=== PATIENT | female | born 1940 | race Caucasian/White ===

== ENCOUNTER 2017-01-17 18:38 | Emergency (ER) | payer OTHER ==
[~2017-01-17] VITALS: Ht 157.5 cm; Wt 40.0 kg
[2017-01-17 18:41] VITALS: BP 153/69; PULSE 75; RESP 18; TEMP 98; O2SAT 95
--- NOTE | 2017-01-17 20:26 | PD ---
HPI Chief Complaint: Respiratory Symptoms Time Seen by Provider: 20:15 Travel History International Travel<30 days: No Contact w/Intl Traveler<30days: No Traveled to known affect area: No History of Present Illness HPI 76-year-old female with history of COPD here for evaluation of cough and shortness of breath. The patient reports that she had the flu shot on December 16, and since then she has had upper respiratory symptoms. She was given a Z- Rashad by her primary care physician in [place]. She was on a cruise ship and return today. 2 days ago while on the ship the cruise doctor started her on amoxicillin. Cough is productive of yellowish sputum. No hemoptysis. No history of DVT or PE. No chest pain. The patient has had episodes of vomiting and loose bowel movements. No abdominal pain. PFSH Social History Tobacco Use: No (Former smoker) Allergies-Medications (Allergen,Severity, Reaction): Coded Allergies: Sulfa (Sulfonamide Antibiotics) (Verified Allergy, Severe, TONGUE SWELLING , 01/17/17) aspirin (Verified Allergy, Intermediate, STOMACH BURNING, 01/17/17) Reported Meds & Prescriptions Reported Meds & Active Scripts Active Zofran Odt (Ondansetron Odt) 4 Mg Tab 4 Mg SL Q8HR PRN Levaquin (Levofloxacin) 500 Mg Tablet 500 Mg PO DAILY 5 Days Prednisone 50 Mg Tab 50 Mg PO DAILY 5 Days Reported Amoxicillin-Clavulanate 875-125 mg Tab 875 Mg PO BID not for use in CrCl <30 mL/minute Enalapril (Enalapril Maleate) 2.5 Mg Tab 2.5 Mg PO DAILY Proair Hfa 8.5 GM Inh (Albuterol Sulfate) 90 Mcg/Act Aer 2 Puff INH Q4-6H PRN 108 mcg/actuation Spiriva Respimat Inh (Tiotropium Inh) 2.5 Mcg/Act Aero 2 Puff INH DAILY 2.5 mcg = 1 inhalation Review of Systems Except as stated in HPI: all other systems reviewed are Neg Physical Exam Narrative GENERAL: Well-developed, thin, comfortable, no apparent distress. SKIN: Focused skin assessment warm/dry. No rash. HEAD: Atraumatic. Normocephalic. EYES: Pupils equal and round. No scleral icterus. No injection or drainage. ENT: Mucous membranes pink and moist. NECK: Trachea midline. No JVD. CARDIOVASCULAR: Regular rate and rhythm. RESPIRATORY: No accessory muscle use. Clear to auscultation. Breath sounds equal bilaterally. GASTROINTESTINAL: Abdomen soft, non-tender, nondistended. MUSCULOSKELETAL: No obvious deformities. No clubbing. No cyanosis. No edema. NEUROLOGICAL: Awake and alert. No obvious cranial nerve deficits. Motor grossly within normal limits. Normal speech. PSYCHIATRIC: Appropriate mood and affect; insight and judgment normal. Data Data Last Documented VS Vital Signs Date Time Temp Pulse Resp B/P (MAP) Pulse Ox O2 Delivery O2 Flow Rate FiO2 01/17/17 23:04 108 17 138/68 (91) 96 01/17/17 21:10 21 01/17/17 20:53 Room Air 01/17/17 18:41 98.0 Orders Orders Complete Blood Count With Diff (01/17/17 20:21) Comprehensive Metabolic Panel (01/17/17 20:21) B-Type Natriuretic Peptide (01/17/17 20:21) Act Partial Throm Time (Ptt) (01/17/17 20:21) Prothrombin Time / Inr (Pt) (01/17/17 20:21) Influenzae A/B Antigen (01/17/17 20:21) Iv Access Insert/Monitor (01/17/17 20:21) Electrocardiogram (01/17/17 20:21) Ecg Monitoring (01/17/17 20:21) Oximetry (01/17/17 20:21) Oxygen Administration (01/17/17 20:21) Chest, Single Ap (01/17/17 20:21) Sodium Chloride 0.9% Flush (Ns Flush) (01/17/17 20:30) Methylprednisolone So Succ Inj (Solumedr (01/17/17 20:30) Albuterol-Ipratropium Neb (Duoneb Neb) (01/17/17 20:30) Ondansetron Inj (Zofran Inj) (01/17/17 22:00) Levofloxacin 500 Mg Premix Inj (Levaquin (01/17/17 22:00) Ed Discharge Order (01/17/17 21:56) Labs Laboratory Tests Test 01/17/17 20:35 White Blood Count 7.7 TH/MM3 Red Blood Count 3.81 MIL/MM3 Hemoglobin 11.8 GM/DL Hematocrit 34.6 % Mean Corpuscular Volume 90.8 FL Mean Corpuscular Hemoglobin 31.0 PG Mean Corpuscular Hemoglobin Concent 34.1 % Red Cell Distribution Width 13.0 % Platelet Count 451 TH/MM3 Mean Platelet Volume 7.0 FL Neutrophils (%) (Auto) 57.8 % Lymphocytes (%) (Auto) 23.2 % Monocytes (%) (Auto) 12.7 % Eosinophils (%) (Auto) 6.0 % Basophils (%) (Auto) 0.3 % Neutrophils # (Auto) 4.5 TH/MM3 Lymphocytes # (Auto) 1.8 TH/MM3 Monocytes # (Auto) 1.0 TH/MM3 Eosinophils # (Auto) 0.5 TH/MM3 Basophils # (Auto) 0.0 TH/MM3 CBC Comment DIFF FINAL Differential Comment Prothrombin Time 10.5 SEC Prothromb Time International Ratio 1.0 RATIO Activated Partial Thromboplast Time 25.9 SEC Blood Urea Nitrogen 13 MG/DL Creatinine 0.66 MG/DL Random Glucose 98 MG/DL Total Protein 6.5 GM/DL Albumin 2.7 GM/DL Calcium Level 8.3 MG/DL Alkaline Phosphatase 80 U/L Aspartate Amino Transf (AST/SGOT) 18 U/L Alanine Aminotransferase (ALT/SGPT) 9 U/L Total Bilirubin 0.2 MG/DL Sodium Level 138 MEQ/L Potassium Level 4.1 MEQ/L Chloride Level 105 MEQ/L Carbon Dioxide Level 30.2 MEQ/L Anion Gap 3 MEQ/L Estimat Glomerular Filtration Rate 87 ML/MIN B-Type Natriuretic Peptide 16 PG/ML MDM Medical Decision Making Medical Screen Exam Complete: Yes Emergency Medical Condition: Yes Interpretation(s) EKG: Sinus, rate 69, normal axis, normal intervals, no acute ischemic abnormality. Differential Diagnosis Bronchitis, pneumonia, viral illness, dehydration/metabolic abnormality Narrative Course Vital signs are within normal limits. CBC is unremarkable. CMP is unremarkable. Chest x-ray shows no acute disease. Influenza is negative. The patient was given 3 DuoNeb treatments and IV Solu-Medrol and on reassessment she is resting comfortably. She was never in any respiratory distress. She likely has bronchitis given history of COPD with cough productive of yellowish sputum. She will be discharged home with a prescription for prednisone, Levaquin, and Zofran. She has albuterol inhaler. She was advised to follow-up with her primary care physician this week. She was informed on when to return to the emergency department. She verbalizes understanding and agreement with plan. Diagnosis Primary Impression: Bronchitis Referrals: Primary Care Physician 3 days Additional Instructions: Follow-up with your primary care physician this week. Take antibiotic as prescribed. Return to the emergency department for worsening symptoms or any other concerns. Scripts Ondansetron Odt (Zofran Odt) 4 Mg Tab 4 MG SL Q8HR Y for Nausea/Vomiting, #20 TAB 0 Refills Prov: Chalino Diamond MD 01/17/17 Levofloxacin (Levaquin) 500 Mg Tablet 500 MG PO DAILY for Infection for 5 Days, #5 TAB 0 Refills Prov: Chalino Diamond MD 01/17/17 Prednisone (Prednisone) 50 Mg Tab 50 MG PO DAILY for 5 Days, #5 TAB 0 Refills Prov: Chalino Diamond MD 01/17/17 Disposition: 01 DISCHARGE HOME Condition: Stable Chalino Diamond MD Jan 17, 2017 20:26
[2017-01-17] MEDS ORDERED: methylPREDNISolone SOD SUCC 125 MG/2 ML VIAL IV PUSH ONE (20:30)
[2017-01-17] MEDS ORDERED: SODIUM CHLORIDE 0.9% FLUSH 10 ML FLUSH IVF PRN (20:30)
[2017-01-17 20:52] VITALS: BP 122/57; PULSE 66; RESP 22; O2SAT 96
--- NOTE | 2017-01-17 20:52 | RADRPT ---
EXAM DATE/TIME: 01/17/2017 20:35 [facility] COMPARISON: No previous studies available for comparison. INDICATIONS : Short of breath. MEDICAL HISTORY : None. SURGICAL HISTORY : None. ENCOUNTER: Initial ACUITY: 1 day PAIN SCORE: 7/10 LOCATION: Bilateral chest FINDINGS: A single view of the chest demonstrates the lungs to be symmetrically aerated without evidence of mas s, infiltrate or effusion. The cardiomediastinal contours are unremarkable. Osseous structures are intact. CONCLUSION: No evidence of acute cardiopulmonary disease. Suman King MD on January 17, 2017 at 20:49 Board Certified Radiologist. This report was verified electronically.
[2017-01-17] MEDS ORDERED: AMOX875T2 PO (20:55)
[2017-01-17] MEDS ORDERED: ALBUAER3 INH (20:55)
[2017-01-17] MEDS ORDERED: TIOT12.9 INH (20:55)
[2017-01-17] MEDS ORDERED: ENAL2.5T PO (20:55)
[2017-01-17] MEDS: RESP: ALBUTEROL 2.5 MG/IPRATROPIUM 0.5 MG NEB (SCH) INH (21:07)
[2017-01-17 21:10] VITALS: O2SAT 96
[2017-01-17 21:33] LABS: AUTOMATED NEUTROPHIL # 4.5 TH/MM3 (1.8-7.7); BASOPHIL % 0.3 % (0.0-2.0); EOSINOPHIL # 0.5 TH/MM3 (0-0.4); HEMATOCRIT 34.6 % (35.0-46.0); HEMO FLAGS DIFF FINAL; LYMPH % 23.2 % (9.0-44.0); LYMPHOCYTE # 1.8 TH/MM3 (1.0-4.8); MEAN CELL VOLUME 90.8 FL (80.0-100.0); MEAN CORPUSCULAR HGB CONC 34.1 % (32.0-36.0); MONO % 12.7 % (0.0-8.0); NEUT % 57.8 % (16.0-70.0); PLATELET COUNT 451 TH/MM3 (150-450); RED BLOOD COUNT 3.81 MIL/MM3 (4.00-5.30); WHITE BLOOD COUNT 7.7 TH/MM3 (4.0-11.0)
[2017-01-17 21:36] LABS: APTT (PATIENT) 25.9 SEC (24.3-30.1); PROTHROMBIN TIME - PATIENT 10.5 SEC (9.8-11.6)
[2017-01-17 21:48] LABS: ALT (GPT) 9 U/L (10-53); ANION GAP 3 MEQ/L (5-15); AST (GOT) 18 U/L (15-37); BICARBONATE 30.2 MEQ/L (21.0-32.0); BLOOD UREA NITROGEN 13 MG/DL (7-18); CHLORIDE 105 MEQ/L (98-107); GLOMERULAR FILTRATION RATE 87 ML/MIN (>89); POTASSIUM 4.1 MEQ/L (3.5-5.1); SODIUM (NA) 138 MEQ/L (136-145)
[2017-01-17 21:50] LABS: ALKALINE PHOSPHATASE 80 U/L (45-117); TOTAL BILIRUBIN ADULT 0.2 MG/DL (0.2-1.0)
[2017-01-17] MEDS ORDERED: LEVA500T33 PO (21:55)
[2017-01-17] MEDS ORDERED: ZOFR4TAB3 SL (21:55)
[2017-01-17] MEDS ORDERED: PRED50 PO (21:55)
[2017-01-17] MEDS ORDERED: LEVOFLOXACIN 500 MG PREMIX INJ 100 ML IV ONE (22:00)
[2017-01-17] MEDS ORDERED: ONDANSETRON HCL 4 MG/2 ML VIAL IV PUSH ONE (22:00)
[2017-01-17 23:04] VITALS: BP 138/68
--- NOTE | 2017-01-18 18:44 | EKG ---
Date Performed: 01/17/2017 Time Performed: 20:29:48 PTAGE: 76 years EKG: Sinus rhythm NORMAL ECG NO PREVIOUS TRACING DOCTOR: Epi Berg Interpretating Date/Time 01/18/2017 18:44:32
== END 2017-01-17 23:05 | disposition home or self-care (01) ==
LOC: NEPC 18:38
DX: J40 Bronchitis, not specified as acute or chronic (principal); R11.10 Vomiting, unspecified; R19.7 Diarrhea, unspecified; J44.9 Chronic obstructive pulmonary disease, unspecified; Z87.891 Personal history of nicotine dependence; Z79.899 Other long term (current) drug therapy; Z88.2 Allergy status to sulfonamides; Z88.6 Allergy status to analgesic agent
CPT/HCPCS: 71010; 80053; 83880; 85025; 85610; 85730; 87804; 93005; 94640; 94664; 96374; 96375; 99285; J1956; J2405; J2930